=== PATIENT | female | born 1990 | race Two or more races ===

== ENCOUNTER 2018-07-14 16:31 | Emergency (ER) | payer SELFPAY ==
[~2018-07-14] VITALS: Ht 162.6 cm; Wt 50.8 kg
[~2018-07-14 16:31] MED LIST: XANAX
--- NOTE | 2018-07-14 16:48 | NUR ---
PT NOT IN WAITING ROOM X2.
--- NOTE | 2018-07-14 16:50 | NUR ---
PT A/OX4, PRESENTS TO THE ER C/O R FLANK PAIN THAT STARTED "COUPLE OF DAYS AGO". R FLANK PAIN NON-PROVOKED, SHARP IN QUALITY, RADIATES UP THE R SIDE, CONSTANT. PT DENIES C/P, SOB, N/V/D, DIZZINESS, HEADACHE.
--- NOTE | 2018-07-14 17:05 | NUR ---
SABRINA BARROSO AT BEDSIDE FOR MSE.
[2018-07-14 17:24] LABS: BASOPHILS # (AUTO) 0.1 K/uL (0.0-8.0); BASOPHILS % (AUTO) 0.6 % (0.0-2.0); EOSINOPHILS # (AUTO) 0.1 K/uL (0.0-0.7); EOSINOPHILS % (AUTO) 1.2 % (0.0-7.0); HEMATOCRIT 39.6 % (31.2-41.9); HEMOGLOBIN 13.7 g/dL (10.9-14.3); LYMPHOCYTES # (AUTO) 1.9 K/uL (20.0-40.0); LYMPHOCYTES % (AUTO) 20.8 % (20.5-51.5); MEAN CORPUSCULAR HEMOGLOBIN 30.2 uug (24.7-32.8); MEAN CORPUSCULAR HGB CONC 35 g/dL (32.3-35.6); MEAN CORPUSCULAR VOLUME 87.6 fL (75.5-95.3); MONOCYTES # (AUTO) 0.6 K/uL (2.0-10.0); MONOCYTES % (AUTO) 7.1 % (0.0-11.0); NEUTROPHILS # (AUTO) 6.3 K/uL (1.8-8.9); NEUTROPHILS % (AUTO) 70.3 % (38.5-71.5); PLATELET COUNT (AUTO) 271 K/uL (179-408); RED BLOOD CELL COUNT(AUTO) 4.52 MIL/uL (3.63-4.92); WHITE BLOOD COUNT (AUTO) 8.9 K/uL (3.8-11.8)
--- NOTE | 2018-07-14 18:25 | NUR ---
Patient does not wish to proceed with medical care recommended by Dr. CARO. Patient given information related to possible complications, up to and including , which could occur as a result of leaving the hospital at this time. Patient verbalizes understanding of risks involved due to leaving against medical advice. Patient has signed AMA form.
== END 2018-07-14 18:26 | disposition left against medical advice (07) ==
LOC: ER 16:31
DX: R10.9 Unspecified abdominal pain (principal); F17.200 Nicotine dependence, unspecified, uncomplicated; F12.10 Cannabis abuse, uncomplicated; Z79.899 Other long term (current) drug therapy
CPT/HCPCS: 36415; 85025; A4663

== ENCOUNTER 2018-08-19 00:49 | Emergency (ER) | payer SELFPAY ==
[~2018-08-19] VITALS: Ht 162.6 cm; Wt 45.4 kg
--- NOTE | 2018-08-19 01:08 | NUR ---
Dr. Francisco at bedside for MSE.
[2018-08-19] MEDS ORDERED: IV NORMAL SALINE 1000 ML BAG IV ONE (01:15)
[2018-08-19 01:30] LABS: BASOPHILS % (AUTO) 0.7 % (0.0-2.0); EOSINOPHILS # (AUTO) 0.1 K/uL (0.0-0.7); HEMATOCRIT 36.5 % (31.2-41.9); HEMOGLOBIN 12.1 g/dL (10.9-14.3); LYMPHOCYTES # (AUTO) 1.8 K/uL (20.0-40.0); LYMPHOCYTES % (AUTO) 27.9 % (20.5-51.5); MEAN CORPUSCULAR HGB CONC 33 g/dL (32.3-35.6); MEAN CORPUSCULAR VOLUME 87.5 fL (75.5-95.3); MONOCYTES # (AUTO) 0.5 K/uL (2.0-10.0); MONOCYTES % (AUTO) 8.3 % (0.0-11.0); NEUTROPHILS % (AUTO) 61.1 % (38.5-71.5); PLATELET COUNT (AUTO) 251 K/uL (179-408); RED BLOOD CELL COUNT(AUTO) 4.17 MIL/uL (3.63-4.92); WHITE BLOOD COUNT (AUTO) 6.5 K/uL (3.8-11.8)
[2018-08-19 01:33] LABS: CARBON DIOXIDE 31 mmol/L (21-32); CHLORIDE 102 mmol/L (98-107); CREATININE 0.7 mg/dL (0.6-1.3); GLUCOSE 99 mg/dL (74-106); POTASSIUM 3.4 mmol/L (3.5-5.1); UREA NITROGEN, BLOOD 12 mg/dL (7-18)
[2018-08-19 01:40] LABS: ALANINE AMINOTRANSFERASE 16 U/L (14-59); ALKALINE PHOSPHATASE 55 U/L (50-136); ASPARTATE AMINOTRANSFERASE 13 U/L (15-37); BILIRUBIN,DIRECT 0.1 mg/dL (0.0-0.2); BILIRUBIN,TOTAL 0.2 mg/dL (0.2-1.0); TOTAL PROTEIN, SERUM 6.8 g/dL (6.4-8.2)
[2018-08-19 01:41] LABS: ACETAMINOPHEN < 2.0 ug/mL (10-30)
[2018-08-19 01:42] LABS: ETHANOL < 3 MG/DL (0-0)
--- NOTE | 2018-08-19 03:45 | NUR ---
Pt sleeping, arousable, but very drowsy, unable to provide urine at this time.
--- NOTE | 2018-08-19 04:36 | NUR ---
Pt sleeping, arousable, but still too drowsy, unable to provide urine at this time.
--- NOTE | 2018-08-19 07:07 | NUR ---
Report given to Everett Olvera RN [facility].
--- NOTE | 2018-08-19 07:09 | NUR ---
RECEIVED SHIFT REPORT FROM JAMAL GIANG. PT RESTING COMFORTABLY IN BED AT THIS TIME - SIGNIFICANT OTHER AT BEDSIDE.
--- NOTE | 2018-08-19 07:17 | NUR ---
PT SELF-AMBULATED TO RESTROOM W/ STEADY GAIT.
--- NOTE | 2018-08-19 07:30 | NUR ---
PT DENIES SI AT THIS TIME.
[2018-08-19 07:34] LABS: *URINE HCG, QUAL NEGATIVE (NEGATIVE)
[2018-08-19 07:45] LABS: *AMPHETAMINE, URINE POSITIVE (NEGATIVE); *BARBITURATE, URINE NEGATIVE (NEGATIVE); *CANNABINOID, URINE POSITIVE (NEGATIVE); *COCCAINE, URINE NEGATIVE (NEGATIVE); *OPIATE, URINE POSITIVE (NEGATIVE); *PHENCYCLIDINE SCREEN,URINE NEGATIVE (NEGATIVE)
--- NOTE | 2018-08-19 07:47 | NUR ---
SABRINA BARROSO AT BEDSIDE FOR PT UPDATE.
--- NOTE | 2018-08-19 08:00 | NUR ---
Patient discharged to home in stable conditon. Written and verbal after care instructions given. Patient verbalizes understanding of instructions. PT D/C W/ PRESCRIPTION. ALL BELONGINGS W/ PT. PT SELF-AMBULATED W/O DIFFICULTY. 20G IV ACCESS IN LAC REMOVED PRIOR TO D/C - INNER CANNULA INTACT.
[2018-08-19 08:02] VITALS: BP 96/50
== END 2018-08-19 08:03 | disposition home or self-care (01) ==
LOC: ER 00:51
DX: T40.1X1A Poisoning by heroin, accidental (unintentional), initial encounter (principal); F11.20 Opioid dependence, uncomplicated; F19.90 Other psychoactive substance use, unspecified, uncomplicated; F15.10 Other stimulant abuse, uncomplicated; F17.290 Nicotine dependence, other tobacco product, uncomplicated; F12.10 Cannabis abuse, uncomplicated; Z79.899 Other long term (current) drug therapy; Y92.89 Other specified places as the place of occurrence of the external cause
CPT/HCPCS: 36415; 80048; 80076; 80307; 84703; 85025; 99283; 99406; G0480 ×2; G0481; A4663; J7030

== ENCOUNTER 2020-08-08 12:59 | Emergency (ER) | payer SELFPAY ==
[~2020-08-08] VITALS: Ht 162.6 cm; Wt 59.0 kg
--- NOTE | 2020-08-08 14:05 | NUR ---
Pt is in room #2a. Dr Manuel evaluated the pt.
--- NOTE | 2020-08-08 14:14 | NUR ---
SAO2 100% AFTER MILD EXERTION TRIAL PER MD ORDER.
[2020-08-08 14:30] LABS: *URINE HCG, QUAL NEGATIVE (NEGATIVE)
--- NOTE | 2020-08-08 15:45 | NUR ---
PT WAS D/C'd TO HOME. D/C INSTRUCTIONS GIVEN TO THE PT BY DR CRUZ.
[2020-08-08 15:46] VITALS: BP 131/72
== END 2020-08-08 15:47 | disposition home or self-care (01) ==
LOC: ER 13:01
DX: U07.1 COVID-19 (principal); R43.8 Other disturbances of smell and taste; T40.1X1D Poisoning by heroin, accidental (unintentional), subsequent encounter; F11.10 Opioid abuse, uncomplicated; F13.20 Sedative, hypnotic or anxiolytic dependence, uncomplicated; F41.9 Anxiety disorder, unspecified; Z86.69 Personal history of other diseases of the nervous system and sense organs; R94.31 Abnormal electrocardiogram [ECG] [EKG]; F17.200 Nicotine dependence, unspecified, uncomplicated; R07.89 Other chest pain
CPT/HCPCS: 71045; 84703; 87426; 93005; 99285; U0003; A4663

== ENCOUNTER 2020-10-30 13:16 | Emergency (ER) | payer BC ==
[~2020-10-30] VITALS: Ht 162.6 cm; Wt 54.4 kg
[2020-10-30] MEDS ORDERED: ONDANSETRON 4 MG/2 ML VIAL IV ONE (13:45)
[2020-10-30] MEDS ORDERED: PANTOPRAZOLE SODIUM 40 MG VIAL IV ONE (13:45)
[2020-10-30] MEDS ORDERED: IV NORMAL SALINE 1000 ML BAG IV ONE ×2 (13:45→15:00)
[2020-10-30] MEDS ORDERED: PANTOPRAZOLE SODIUM 40 MG VIAL ONE (13:52)
[2020-10-30] MEDS ORDERED: ONDANSETRON 4 MG/2 ML VIAL ONE (13:52)
[2020-10-30 14:03] LABS: BASOPHILS # (AUTO) 0.1 K/uL (0.0-8.0); BASOPHILS % (AUTO) 0.9 % (0.0-2.0); EOSINOPHILS # (AUTO) 0.1 K/uL (0.0-0.7); HEMATOCRIT 37.9 % (31.2-41.9); HEMOGLOBIN 12.9 g/dL (10.9-14.3); LYMPHOCYTES # (AUTO) 1.8 K/uL (20.0-40.0); LYMPHOCYTES % (AUTO) 21.5 % (20.5-51.5); MEAN CORPUSCULAR HEMOGLOBIN 28.7 uug (24.7-32.8); MEAN CORPUSCULAR HGB CONC 34 g/dL (32.3-35.6); MEAN CORPUSCULAR VOLUME 84.2 fL (75.5-95.3); MONOCYTES # (AUTO) 0.7 K/uL (2.0-10.0); MONOCYTES % (AUTO) 8.1 % (0.0-11.0); NEUTROPHILS # (AUTO) 5.6 K/uL (1.8-8.9); NEUTROPHILS % (AUTO) 68.5 % (38.5-71.5); PLATELET COUNT (AUTO) 344 K/uL (179-408); WHITE BLOOD COUNT (AUTO) 8.2 K/uL (3.8-11.8)
[2020-10-30 14:08] LABS: CARBON DIOXIDE 35 mmol/L (21-32); CHLORIDE 96 mmol/L (98-107); CREATININE 0.8 mg/dL (0.6-1.3); GLUCOSE 109 mg/dL (74-106); POTASSIUM 3.3 mmol/L (3.5-5.1); UREA NITROGEN, BLOOD 21 mg/dL (7-18)
[2020-10-30 14:15] LABS: ALANINE AMINOTRANSFERASE 134 U/L (14-59); ALKALINE PHOSPHATASE 120 U/L (50-136); ASPARTATE AMINOTRANSFERASE 40 U/L (15-37); BILIRUBIN,DIRECT 0.1 mg/dL (0.0-0.2); BILIRUBIN,TOTAL 0.6 mg/dL (0.2-1.0); LIPASE 186 U/L (73-393); TOTAL PROTEIN, SERUM 8.8 g/dL (6.4-8.2)
[2020-10-30] MEDS ORDERED: OMEP40CA13 PO (16:18)
[2020-10-30] MEDS ORDERED: ONDA4TAB11 PO (16:18)
[2020-10-30] MEDS ORDERED: NALO4SPR NS (16:18)
[2020-10-30 18:29] VITALS: BP 137/88
== END 2020-10-30 18:30 | disposition home or self-care (01) ==
LOC: ER 13:16
DX: R11.2 Nausea with vomiting, unspecified (principal); R10.13 Epigastric pain; R51.9 Headache, unspecified; F11.10 Opioid abuse, uncomplicated; Z82.49 Family history of ischemic heart disease and other diseases of the circulatory system; E87.6 Hypokalemia; E87.3 Alkalosis; D64.9 Anemia, unspecified; Z98.82 Breast implant status; F17.200 Nicotine dependence, unspecified, uncomplicated; Z86.69 Personal history of other diseases of the nervous system and sense organs
CPT/HCPCS: 36415; 80048; 80076; 83690; 84443; 84702; 85025; 96361; 96374; 96375; 99284; C9113; J2405; A4663; J7030

== ENCOUNTER 2021-12-26 18:17 | Emergency (ER) | payer BC ==
[~2021-12-26] VITALS: Ht 167.6 cm; Wt 49.9 kg
[~2021-12-26 18:17] MED LIST changes: +NALO4SPR NS; +OMEP40CA21 PO; +ONDA4TAB11 PO; -XANAX
--- NOTE | 2021-12-26 19:14 | NUR ---
pt awake arouses to strong verbal, is appropriate but appears to not answer questions by choice. no c/o pain.
--- NOTE | 2021-12-26 20:22 | NUR ---
Dr. Manuel at bedside with the pt and her boyfriend.
[2021-12-27 00:22] LABS: HEMATOCRIT 32.3 % (31.2-41.9); MEAN CORPUSCULAR HEMOGLOBIN 28.2 uug (24.7-32.8); MEAN CORPUSCULAR VOLUME 84.2 fL (75.5-95.3); PLATELET COUNT (AUTO) 238 K/uL (179-408)
[2021-12-27 00:34] LABS: ALANINE AMINOTRANSFERASE 86 U/L (14-59); ALKALINE PHOSPHATASE 67 U/L (50-136); ASPARTATE AMINOTRANSFERASE 22 U/L (15-37); BILIRUBIN,DIRECT 0.1 mg/dL (0.0-0.2); BILIRUBIN,TOTAL 0.2 mg/dL (0.2-1.0); CARBON DIOXIDE 32 mmol/L (21-32); CHLORIDE 104 mmol/L (98-107); CREATININE 0.7 mg/dL (0.6-1.3); GLUCOSE 98 mg/dL (74-106); POTASSIUM 3.9 mmol/L (3.5-5.1); UREA NITROGEN, BLOOD 9 mg/dL (7-18)
--- NOTE | 2021-12-27 01:03 | NUR ---
pt's boyfriend has been at the bedside of the pt. pt denies any pain or discomfort, pt will awaken but refuses to converse completly.
[2021-12-27 02:32] LABS: ETHANOL < 3 MG/DL (0-0)
--- NOTE | 2021-12-27 02:52 | NUR ---
Patient discharged to home in stable condition. Written and verbal after care instructions given. Patient verbalizes understanding of instructions. Stressed follow up or return to ER for worsening s/s. pt ambulated out of the er steady gait, accompanied by her boyfriend.
[2021-12-27 03:29] VITALS: BP 100/47
== END 2021-12-27 03:29 | disposition home or self-care (01) ==
LOC: ER 18:18
DX: T65.91XA Toxic effect of unspecified substance, accidental (unintentional), initial encounter (principal); Y92.830 Public park as the place of occurrence of the external cause; Z98.82 Breast implant status; G93.2 Benign intracranial hypertension; F11.10 Opioid abuse, uncomplicated; F17.200 Nicotine dependence, unspecified, uncomplicated
CPT/HCPCS: 36415; 71045; 85025; A4663; G0480

== ENCOUNTER 2022-06-01 13:15 | Emergency (ER) | payer OTHER, MEDICAID ==
[~2022-06-01] VITALS: Ht 162.6 cm; Wt 54.4 kg
--- NOTE | 2022-06-01 13:26 | NUR ---
Pt ambulatory to room 2A.
--- NOTE | 2022-06-01 13:45 | NUR ---
Pt walked out of the ER.
[2022-06-01] MEDS ORDERED: NALO4SPR BNOSTRILS (22:47)
== END 2022-06-01 13:52 | disposition left against medical advice (07) ==
LOC: ER 13:17
DX: Z53.21 Procedure and treatment not carried out due to patient leaving prior to being seen by health care provider (principal)

== ENCOUNTER 2022-06-01 15:00 | Emergency (ER) | payer BC, MEDICAID ==
[~2022-06-01] VITALS: Ht 162.6 cm; Wt 54.4 kg
[2022-06-01 15:51] LABS: HEMATOCRIT 33.8 % (31.2-41.9); MEAN CORPUSCULAR HEMOGLOBIN 28.9 uug (24.7-32.8); MEAN CORPUSCULAR VOLUME 86.1 fL (75.5-95.3); PLATELET COUNT (AUTO) 230 K/uL (179-408)
[2022-06-01 15:59] LABS: CREATININE 0.9 mg/dL (0.6-1.3); POTASSIUM 3.3 mmol/L (3.5-5.1)
--- NOTE | 2022-06-01 17:03 | NUR ---
Patient presents to the ER, C/O Headache. Patient A/O X 4, seen by the MD blood collected and sent. Patient transported safely via stretcher to and from MD. Patient is stable on the stretcher, in the lowest position, call marshall within reach and awaiting disposition. Patient seen and cleared for discharge home, became beligerent, rude and disrespectful to ER staff; demanding a meal tray. Patient was provided juice and crackers, but was adamant that she wanted a sandwich or a meal tray. Patient informed that meal trays are not available at this time and sandwich are also available. Patient became more agitated and rude and disrepectful to credit underwriter. Patient was provided with her discharge instructions with lab results and CT reading provided. Patient is stable, left ambulatory.
[2022-06-01] MEDS ORDERED: NALO4SPR BNOSTRILS (22:47)
== END 2022-06-01 17:15 | disposition home or self-care (01) ==
LOC: ER 15:02
DX: R20.2 Paresthesia of skin (principal); F11.10 Opioid abuse, uncomplicated; F17.200 Nicotine dependence, unspecified, uncomplicated; Z91.89 Other specified personal risk factors, not elsewhere classified; Z86.69 Personal history of other diseases of the nervous system and sense organs
CPT/HCPCS: 36415; 70450; 85025; A4663

== ENCOUNTER 2022-06-01 20:35 | Emergency (ER) | payer BC, OTHER ==
[~2022-06-01] VITALS: Ht 162.6 cm; Wt 54.4 kg
--- NOTE | 2022-06-01 20:35 | NUR ---
SHARIFA from across the street ([place]).
--- NOTE | 2022-06-01 20:50 | NUR ---
Police at bedside (Officer Vargas).
--- NOTE | 2022-06-01 21:38 | NUR ---
Received call back from Reuben from [facility], , states they can picker and packer the patient to take back to their facility once she is medically cleared by . Pt states she is willing to come back to Drug Rehab facility.
[2022-06-01] MEDS ORDERED: NALO4SPR BNOSTRILS (22:47)
--- NOTE | 2022-06-02 04:46 | NUR ---
Patient up and walking with a steady gait.
--- NOTE | 2022-06-02 05:00 | NUR ---
A/O x4. NAD noted. Ambulatory with a steady gait. All belongings with patient. Patient discharged to home in stable condition. Written and verbal after care instructions given. Patient verbalizes understanding of instructions. Stressed follow up or return to ER for worsening s/s.
[2022-06-02 05:12] VITALS: BP 109/63
== END 2022-06-02 05:00 | disposition other institution (70) ==
LOC: ER 20:35
DX: T40.411A Poisoning by fentanyl or fentanyl analogs, accidental (unintentional), initial encounter (principal); T42.4X1A Poisoning by benzodiazepines, accidental (unintentional), initial encounter; R40.0 Somnolence; F11.10 Opioid abuse, uncomplicated; Y92.511 Restaurant or cafe as the place of occurrence of the external cause; Z98.82 Breast implant status
CPT/HCPCS: A4663

== ENCOUNTER 2024-12-13 19:10 | Emergency (ER) | payer BC, MEDICAID, OTHER ==
[~2024-12-13] VITALS: Ht 167.6 cm; Wt 70.3 kg
[~2024-12-13 19:10] MED LIST changes: +NALO4SPR BNOSTRILS
[2024-12-13 19:42] VITALS: BP 101/50; O2SAT 100
== END 2024-12-13 19:43 | disposition home or self-care (01) ==
LOC: ER 19:10
DX: Z00.00 Encounter for general adult medical examination without abnormal findings (principal); F17.290 Nicotine dependence, other tobacco product, uncomplicated; F19.10 Other psychoactive substance abuse, uncomplicated; Z79.899 Other long term (current) drug therapy
CPT/HCPCS: A4606; A4663